=== PATIENT | male | born 1985 | race Caucasian/White ===

== ENCOUNTER 2017-07-25 10:03 | Emergency (ER) | payer BC ==
[2017-07-25] MEDS ORDERED: ORPHENADRINE CITRATE 60MG/2ML VIAL IM ONE (10:18)
[2017-07-25] MEDS ORDERED: KETOROLAC 30 MG/ML VIAL IM ONE (10:18)
--- NOTE | 2017-07-25 10:19 | Emergency Department Record ---
History of Present Illness - General Chief Complaint: Back Pain/Injury Stated Complaint: LOWER BACK PAIN Time Seen by Provider: 07/25/17 10:11 Source: Patient Mode of Arrival: Ambulatory Limitations: No limitations - History of Present Illness Initial Comments: The patient is here due to low back pain for 5 days. He denies any trauma or injury but states he twisted funny and felt pain in his L lower back. Now the pain intermittently radiates down the back of the L leg. He denies any leg numbness, or weakness and also denies any bowel or bladder incontinence or trouble. The pain is worse with twisting to the L. The patient has a minor hx of mild back pain and has seen a chiropracter in the past. MD Complaint: Back pain Onset/Timin -: Days(s) Similar Symptoms Previously: No Place: Home Radiation: Left leg Severity: Mild Severity scale (1-10): 5 Quality: Sharp Consistency: Constant Improves With: None Worsens With: None Context: Unknown Associated Symptoms: Denies other symptoms Treatments Prior to Arrival: NSAIDS - Related Data Previous Rx's Medication Instructions Recorded Cyclobenzaprine HCl [Flexeril] 10 mg PO TID PRN #20 tablet 07/25/17 Methylprednisolone [Medrol Dose 4 mg PO DAILY #1 tab.ds.pk 07/25/17 Pack] Naproxen [Naprosyn] 500 mg PO BID #14 tablet. 07/25/17 Allergies Allergy/AdvReac Type Severity Reaction Status Date / Time No Known Drug Allergies Allergy Verified 07/25/17 10:08 Travel Screening - Travel/Exposure Within Last 30 Days Have you traveled within the last 30 days?: No Review of Systems Constitutional: Denies: Chills, Fever Eyes: Denies: Eye discharge ENT: Denies: Congestion Respiratory: Denies: Cough, Dyspnea Past Medical History - SOCIAL HISTORY Smoking Status: Never smoker Alcohol Use: None Drug Use: None - RESPIRATORY Hx Respiratory Disorders: No - CARDIOVASCULAR Hx Cardio Disorders: No - NEURO Hx Neuro Disorders: No - GI Hx GI Disorders: No - Hx Genitourinary Disorders: No - ENDOCRINE Hx Endocrine Disorders: No - MUSCULOSKELETAL Hx Musculoskeletal Disorders: No - PSYCH Hx Psych Problems: No - HEMATOLOGY/ONCOLOGY Hx Hematology/Oncology Disorders: No Family Medical History Any Significant Family History?: No Physical Exam - General General Appearance: Alert, Oriented x3, Cooperative, No acute distress - Head Head exam: Atraumatic, Normocephalic, Normal inspection - Eye Eye exam: Normal appearance, PERRL - Neck Neck exam: Normal inspection, Full ROM. negative: Tenderness - Respiratory Respiratory exam: Normal lung sounds bilaterally. negative: Respiratory distress - Cardiovascular Cardiovascular Exam: Regular rate, Normal rhythm, Normal heart sounds - GI/Abdominal GI/Abdominal exam: Soft, Normal bowel sounds. negative: Tenderness - Extremities Extremities exam: Normal inspection, Full ROM, Normal capillary refill. negative: Tenderness - Back Back exam: Reports: Normal inspection, Other (The pain is reproduced with trunk twisting to the L.). Denies: Muscle spasm, Paraspinal tenderness, Vertebral tenderness - Neurological Neurological exam: Alert, Normal gait, Oriented X3, Reflexes normal (The patellar and achilles reflexes are 2+ and equal bilaterally.). negative: Abnormal gait, Altered, Motor sensory deficit (The patient's motor and sensory are 5/5 and equal to the bilateral lower extremities.) - Skin Skin exam: negative: Rash Course Vital Signs 07/25/17 10:05 Temperature 98.2 F Pulse Rate 84 Respiratory 16 Rate Blood Pressure 141/85 Pulse Ox 97 - Reevaluation(s) Reevaluation #1: The patient is doing better at this time. He is resting comfortably and states his pain is improved. He feels ready for home. 07/25/17 10:50 Disposition Disposition: Discharge Clinical Impression: Low back pain Qualifiers: Chronicity: acute Back pain laterality: left Sciatica presence: unspecified whether sciatica present Qualified Code(s): M54.5 - Low back pain Disposition: Home, Self-Care Condition: (1) Good Instructions: Low Back Strain (ED) Additional Instructions: Please rest at home with no lifting or bending. Please see your PCP for recheck later this week if not better. Take the pain medicines and steroids as directed. Please return to the ER for any increased pain, leg numbness, weakness or any bowel or bladder incontinence or trouble urinating or defecating. Prescriptions: Cyclobenzaprine HCl [Flexeril] 10 mg PO TID PRN #20 tablet PRN Reason: Pain Methylprednisolone [Medrol Dose Pack] 4 mg PO DAILY #1 tab.ds.pk Naproxen [Naprosyn] 500 mg PO BID #14 tablet.dr Forms: Patient Portal Access Time of Disposition: :54 Quality - Quality Measures Quality Measures: N/A - Blood Pressure Screening View Details: Yes Does Patient Have Any of the Following: No Blood Pressure Classification: Pre-Hypertensive BP Reading Systolic Measurement: 121 Diastolic Measurement: 74 Screening for High Blood Pressure: < Pre-Hypertensive BP, F/U Documented > [ G8950] Pre-Hypertensive Follow-up Interventions: Referral to alternative/primary care provider.
== END 2017-07-25 10:58 | disposition home or self-care (01) ==
LOC: ER 10:03
DX: M54.5 Low back pain (principal)
CPT/HCPCS: 99283 ×2; 96372; J1885; J2360

== ENCOUNTER 2017-07-26 10:15 | Emergency (ER) | payer BC ==
[2017-07-26] MEDS ORDERED: MORPHINE SULFATE 5 MG/ML PFS IM ONE (10:30)
--- NOTE | 2017-07-26 10:30 | Emergency Department Record ---
History of Present Illness - General Chief Complaint: Back Pain/Injury Stated Complaint: BACK PAIN Time Seen by Provider: 07/26/17 10:19 Source: Patient Mode of Arrival: Ambulatory Limitations: No limitations - History of Present Illness Initial Comments: 32 yo male presents with continued back pain. He was seen in the ED yesterday. He has pain with twisting or bending. No history of back surgery. No weakness. No numbness. No foot drop. No numbness or tingling. He has pain with prolonged standing or laying. No changes in bowel or bladder function. No history of fever, IVDA, CA MD Complaint: Back pain, Back injury -: Days(s) Place: Work Radiation: Left leg Severity: Moderate Quality: Aching Consistency: Constant Improves With: Other (Remaining still) Worsens With: Other (Twitsting) Context: Bending Associated Symptoms: Denies other symptoms - Related Data Previous Rx's Medication Instructions Recorded Cyclobenzaprine HCl [Flexeril] 10 mg PO TID PRN #20 tablet 07/25/17 Methylprednisolone [Medrol Dose 4 mg PO DAILY #1 tab.ds.pk 07/25/17 Pack] Naproxen [Naprosyn] 500 mg PO BID #14 tablet. 07/25/17 Hydrocodone/Acetaminophen [[place] 1 tab PO Q8H PRN #20 tab 07/26/17 7.5mg/325mg] Allergies Allergy/AdvReac Type Severity Reaction Status Date / Time No Known Drug Allergies Allergy Verified 07/25/17 10:08 Review of Systems Constitutional: Denies: Chills, Fever, Malaise, Night sweats, Weakness Eyes: Denies: Eye discharge ENT: Denies: Congestion, Throat pain Respiratory: Denies: Cough, Dyspnea, Hemoptysis, Stridor, Wheezes Cardiovascular: Denies: Chest pain, Palpitations, Syncope Endocrine: Denies: Fatigue Gastrointestinal: Denies: Abdominal pain, Diarrhea, Nausea, Vomiting Genitourinary: Denies: Dysuria, Frequency, Hematuria, Incontinence Musculoskeletal: Reports: Back pain, Myalgia. Denies: Arthralgia, Joint swelling, Neck pain Skin: Denies: Bruising, Change in color, Rash Neurological: Denies: Abnormal gait, Confusion, Headache, Numbness, Tingling, Tremors, Vertigo, Weakness Psychiatric: Denies: Anxiety Hematological/Lymphatic: Denies: Blood Clots, Easy bleeding, Easy bruising, Swollen glands Past Medical History - SOCIAL HISTORY Smoking Status: Never smoker Drug Use: None - RESPIRATORY Hx Respiratory Disorders: No - CARDIOVASCULAR Hx Cardio Disorders: No - NEURO Hx Neuro Disorders: No - GI Hx GI Disorders: No - Hx Genitourinary Disorders: No - ENDOCRINE Hx Endocrine Disorders: No - MUSCULOSKELETAL Hx Musculoskeletal Disorders: No - PSYCH Hx Psych Problems: No - HEMATOLOGY/ONCOLOGY Hx Hematology/Oncology Disorders: No Physical Exam - General General Appearance: Alert, Oriented x3, Cooperative, No acute distress Limitations: No limitations - Head Head exam: Normal inspection - Eye Eye exam: Normal appearance. negative: Conjunctival injection, Periorbital swelling - ENT ENT exam: Normal exam, Mucous membranes moist Ear exam: Normal external inspection Nasal Exam: Normal inspection Mouth exam: Normal external inspection - Neck Neck exam: Normal inspection - Respiratory Respiratory exam: negative: Accessory muscle use - Cardiovascular Peripheral Pulses: 2+: Radial (L) - GI/Abdominal GI/Abdominal exam: Soft. negative: Tenderness - Rectal Rectal exam: Deferred - exam: Deferred - Extremities Extremities exam: Normal inspection, Full ROM, Normal capillary refill. negative: Calf tenderness, Joint swelling, Pedal edema, Tenderness Image of Full Body: 1 - tender ot palpation, no rash, no bony tenderness - Back Back exam: Reports: Muscle spasm, Other (Foot flexion and extension intact, senastion intact, Low Back Pain with lifting the leg) - Neurological Neurological exam: Alert, Oriented X3 - Psychiatric Psychiatric exam: Normal affect, Normal mood - Skin Skin exam: Dry, Intact, Normal color, Warm. negative: Diaphoretic, Erythema, Mottled Course - Reevaluation(s) Reevaluation #1: EMR reviewed from yesterday Will add additional analgesia. The patient has an appointment today with PCP He may require further work up with MRI if not improved 07/26/17 10:33 Disposition Disposition: Discharge Clinical Impression: Sciatica Qualifiers: Laterality: left Qualified Code(s): M54.32 - Sciatica, left side Disposition: Home, Self-Care Condition: (1) Good Instructions: Sciatica (ED) Additional Instructions: Follow up today with Dr Zhong You may need further work up with PCP if not improved including possible MRI with the left leg radiation of the pain. Prescriptions: Hydrocodone/Acetaminophen [[place] 7.5mg/325mg] 1 tab PO Q8H PRN #20 tab PRN Reason: Pain - General Forms: Patient Portal Access Time of Disposition: 10:35 Quality - Quality Measures Quality Measures: N/A - Blood Pressure Screening Does Patient Have Any of the Following: No Blood Pressure Classification: Pre-Hypertensive BP Reading Systolic Measurement: 134 Diastolic Measurement: 88 Screening for High Blood Pressure: < Pre-Hypertensive BP, F/U Documented > [ G8950] Pre-Hypertensive Follow-up Interventions: Referral to alternative/primary care provider.
== END 2017-07-26 11:05 | disposition home or self-care (01) ==
LOC: ER 10:15
DX: M54.32 Sciatica, left side (principal)
CPT/HCPCS: 99283 ×2; 96372; J2270

== ENCOUNTER 2019-05-05 07:35 | Emergency (ER) | payer BC ==
[2019-05-05] MEDS ORDERED: PROPARACAINE HCL OPTH 15ML BTL OPTH ONE (07:44)
[2019-05-05] MEDS ORDERED: ERYTHROMYCIN OPTH OINT 3.5GM OPTH ONE (08:00)
[2019-05-05] MEDS ORDERED: Diph,Pert(Acell),Tet Vac 0.5 ML SYR IM ONE (08:02)
--- NOTE | 2019-05-05 08:02 | Emergency Department Record ---
History of Present Illness - General Chief complaint: Eye Problem Stated complaint: SOMETHING IN LEFT EYE Time Seen by Provider: 05/05/19 07:42 Source: Patient Mode of Arrival: Ambulatory Limitations: No limitations Travel/Exposure to [facility] [place] Within 21 Days of Symptoms: No - History of Present Illness Initial comments: The patient is here due to L eye pain. He was cutting wood last evening and felt he got something into his L eye. He did flush it out and rubbed it a lot trying to get the perceived FB out. He does have mild blurred vision and denies any contact lens use. chief complaint: Eye pain Onset/Timin -: Hour(s) Onset Description: Sudden Location: Left eye Place: Home Eye Symptoms: Blurry vision, Pain If Pain, Quality: Aching Consistency: Constant Context: Other - Related Data Visual acuity (L) = 20/: 40 Visual acuity (R) = 20/: 40 Hx Tetanus Toxoid Vaccination: No Patient Tetanus UTD (within 5 yrs): No Allergies Allergy/AdvReac Type Severity Reaction Status Date / Time cefaclor [From Ceclor] AdvReac rash Unverified 01/31/18 09:14 Travel Screening - Travel/Exposure Within Last 30 Days Have you traveled within the last 30 days?: No - Travel/Exposure Within Last Year Have you traveled outside the [place] in the last year?: No - Additonal Travel Details Have you been exposed to anyone with a communicable illness?: No Review of Systems Constitutional: Denies: Chills, Fever Eyes: Denies: Eye discharge ENT: Denies: Congestion, Throat pain Respiratory: Denies: Dyspnea Past Medical History - SOCIAL HISTORY Smoking Status: Current every day smoker Alcohol Use: None Drug Use: None - RESPIRATORY Hx Respiratory Disorders: No - CARDIOVASCULAR Hx Cardio Disorders: No - NEURO Hx Neuro Disorders: No - GI Hx GI Disorders: No - Hx Genitourinary Disorders: No - ENDOCRINE Hx Endocrine Disorders: No - MUSCULOSKELETAL Hx Musculoskeletal Disorders: No - PSYCH Hx Psych Problems: No - HEMATOLOGY/ONCOLOGY Hx Hematology/Oncology Disorders: No Family Medical History Any Significant Family History?: No Physical Exam - General General Appearance: Alert, Oriented x3, Cooperative, No acute distress - Head Head exam: Atraumatic, Normocephalic, Normal inspection - Eye Eye exam: PERRL, Conjunctival injection (Mild L eye.), EOMI, Other (There is no FB on lid eversion. On SLE there is no corneal FB but there are 2 abrasions, one very small centrally and a larger one at the 10:00 position.). negative: Normal appearance, Periorbital swelling, Periorbital tenderness Visual acuity (L) = 20/: 40 Visual acuity (R) = 20/: 40 With correction: No Image of Eyes: 1 - small abrasion. 2 - Larger abrasion. Course Vital Signs 05/05/19 07:41 Temperature 97.6 F Pulse Rate 74 Respiratory 18 Rate Blood Pressure 120/73 Pulse Ox 98 - Reevaluation(s) Reevaluation #1: I did explain to the patient that he will need to use the ointment and try to keep his L eye closed today. He is to see the eye doctor if not 100% better by Tuesday. 05/05/19 08:04 Disposition Disposition: Discharge Clinical Impression: Corneal abrasion, left Qualifiers: Encounter type: initial encounter Qualified Code(s): S05.02XA - Injury of conjunctiva and corneal abrasion without foreign body, left eye, initial encounter Disposition: Home, Self-Care Condition: (2) Stable Instructions: Corneal Abrasion (ED) Additional Instructions: Please use the ointment in the L eye 4 times a day for 5 days. Please try to keep the eye closed. Please see an eye doctor if not 100% better in 2 days. Return to the ER for any worsening symptoms. Forms: Patient Portal Access Time of Disposition: 08:05 Quality - Quality Measures Quality Measures: N/A - Blood Pressure Screening View Details: Yes Does Patient Have Any of the Following: No Blood Pressure Classification: Pre-Hypertensive BP Reading Systolic Measurement: 116 Diastolic Measurement: 80 Screening for High Blood Pressure: < Pre-Hypertensive BP, F/U Documented > [G8950] Pre-Hypertensive Follow-up Interventions: Referral to alternative/primary care provider.
== END 2019-05-05 08:18 | disposition home or self-care (01) ==
LOC: ER 07:35
DX: S05.02XA Injury of conjunctiva and corneal abrasion without foreign body, left eye, initial encounter (principal); W22.8XXA Striking against or struck by other objects, initial encounter; Y93.H9 Activity, other involving exterior property and land maintenance, building and construction; Y92.007 Garden or yard of unspecified non-institutional (private) residence as the place of occurrence of the external cause; F17.210 Nicotine dependence, cigarettes, uncomplicated
CPT/HCPCS: 90715; 96372; 99283